=== PATIENT | female | born 1950 | race Caucasian/White ===

== ENCOUNTER 2018-10-06 10:00 | Inpatient (IN) ==
[2018-10-06 10:23] LABS: Basophils % 1.1 % (0.0-0.8); Eosinophils # 0.1 10*3/uL (0.0-0.87); Eosinophils % 2.5 % (0.00-10.9); Hematocrit 30.8 VOL% (35.7-47.0); Hemoglobin 10.5 GM/DL (12.0-16.0); Immature Granulocytes % 0.3 %; Immature Granulocytes Absolute 0.01 #; Lymphocytes # 1.2 10*3/uL (1.4-4.0); Lymphocytes % 33.3 % (21.3-54.2); Mean Corpuscular HGB Conc 34.1 GM/DL (32-36); Monocytes % 10.4 % (1.7-12.7); Neutrophils % 52.4 % (38.7-73.9); Platelet Count 113 T/CUMM (130-400); Red Blood Count 2.99 MC/CUMM (3.8-5.5); White Blood Count 3.6 T/CUMM (4-12)
[2018-10-06 10:39] LABS: Bilirubin,Total 0.4 MG/DL (0.2-1.0); Calcium 8.5 MG/DL (8.5-10.1)
[2018-10-06 11:09] LABS: Apearance,Urine CLEAR (Clear); Bilirubin,Urine Negative (Negative); Blood, Urine Negative (Negative); Glucose,Urine (UA) Negative (Negative); Hyaline Casts,Urine 46 /LPF (0-3); Ketones,Urine Negative (Negative); Mucus,Urine Occasional /LPF (Occasional); Nitrite,Urine Negative (Negative); Protein,Urine Negative; RBC,Urine <1 /HPF (0-4); Squamous Epithelial Cell,Urine Occasional /HPF (0-10); Urine Color Yellow (Yellow); Urine Urobilinogen < 2.0 EU/DL (0.2-1.0); WBC,Urine <1 /HPF (0-6)
[2018-10-06] MEDS ORDERED: ZALEPLON 5 MG CAPSULE PO PRN (11:27)
[2018-10-06] MEDS ORDERED: DEXTROSE 10% 25 GM/250 ML BAG IV PRN ×2 (11:27→11:34)
[2018-10-06] MEDS ORDERED: MAGNESIUM SULF RIDER 2 GM in PREMIX 1 EACH IV PRN (11:27)
[2018-10-06] MEDS ORDERED: MAGNESIUM SULF RIDER 4 GM in PREMIX 1 EACH IV PRN (11:27)
[2018-10-06] MEDS ORDERED: MORPHINE 4 MG/1 ML VIAL IV PRN (11:27)
[2018-10-06] MEDS ORDERED: ONDANSETRON 4 MG/2 ML VIAL IV PRN (11:27)
[2018-10-06] MEDS ORDERED: GLUCAGON 1 MG VIAL IM PRN ×2 (11:27→11:34)
[2018-10-06] MEDS ORDERED: ONDANSETRON 4 MG TABLET PO PRN (11:31)
[2018-10-06] MEDS ORDERED: NITROGLYCERIN SL 0.4 MG TABLET SL PRN (11:31)
[2018-10-06] MEDS: SODIUM CHLORIDE 0.45% 1,000 ML IV SCH (13:55)
[2018-10-06] MEDS: ENOXAPARIN 30 MG/0.3 ML SYRINGE SUBCUT SCH (13:56)
[2018-10-06] MEDS: INSULIN LISPRO 100 UNIT/ML SUBCUT SCH ×2 (16:36→20:50)
[2018-10-06] MEDS: MAGNESIUM CHLORIDE 64 MG TABLET PO SCH (20:50)
[2018-10-06] MEDS: busPIRone 5 MG TABLET PO SCH (20:50)
[2018-10-06] MEDS: CLOPIDOGREL 75 MG TABLET PO SCH (20:50)
[2018-10-06] MEDS: ASPIRIN CHEW 81 MG TABLET PO SCH (20:50)
[2018-10-06] MEDS: SIMVASTATIN 80 MG TABLET PO SCH (20:50)
[2018-10-06] MEDS: FAMOTIDINE 20 MG TABLET PO SCH (20:50)
[2018-10-06] MEDS: RANOLAZINE 500 MG TABLET PO SCH (20:50)
[2018-10-06] MEDS: CARVEDILOL 25 MG TABLET PO SCH (20:50)
[2018-10-06] MEDS: NIACIN 500 MG TABLET PO SCH (20:55)
[2018-10-07 05:41] LABS: Risk Ratio 1.96
[2018-10-07] MEDS: LEVOTHYROXINE 150 MCG TABLET PO SCH (06:21)
[2018-10-07] MEDS: INSULIN LISPRO 100 UNIT/ML SUBCUT SCH ×4 (08:29→20:14)
[2018-10-07] MEDS: RANOLAZINE 500 MG TABLET PO SCH ×2 (08:29→20:18)
[2018-10-07] MEDS: FUROSEMIDE 20 MG TABLET PO SCH (08:29)
[2018-10-07] MEDS: LISINOPRIL/HCTZ 10-12.5 MG TABLET PO SCH (08:30)
[2018-10-07] MEDS: ISOSORBIDE MONONITRATE 60 MG TABLET PO SCH (08:30)
[2018-10-07] MEDS: CARVEDILOL 25 MG TABLET PO SCH ×2 (08:30→20:19)
[2018-10-07] MEDS: PANTOPRAZOLE 40 MG TABLET PO SCH (08:30)
[2018-10-07] MEDS: OMEGA 3 ACID ETHYL ESTERS 1 GM CAPSULE PO SCH (08:30)
[2018-10-07] MEDS: busPIRone 5 MG TABLET PO SCH ×2 (08:30→20:19)
[2018-10-07] MEDS: CALCIUM (CARBONATE)/VITAMIN D 600 MG-400 UNIT TABLET PO SCH (08:30)
[2018-10-07] MEDS: FAMOTIDINE 20 MG TABLET PO SCH ×2 (08:30→20:19)
[2018-10-07] MEDS: MULTIVITAMIN (CENTRUM) TABLET PO SCH (08:30)
[2018-10-07] MEDS: SODIUM CHLORIDE 0.45% 1,000 ML IV SCH ×2 (10:54→15:16)
[2018-10-07] MEDS: ENOXAPARIN 30 MG/0.3 ML SYRINGE SUBCUT SCH (13:02)
[2018-10-07] MEDS: ASPIRIN CHEW 81 MG TABLET PO SCH (20:18)
[2018-10-07] MEDS: MAGNESIUM CHLORIDE 64 MG TABLET PO SCH (20:19)
[2018-10-07] MEDS: SIMVASTATIN 80 MG TABLET PO SCH (20:19)
[2018-10-07] MEDS: NIACIN 500 MG TABLET PO SCH (20:19)
[2018-10-07] MEDS: CLOPIDOGREL 75 MG TABLET PO SCH (20:19)
[2018-10-08] MEDS: SODIUM CHLORIDE 0.45% 1,000 ML IV SCH (03:42)
[2018-10-08] MEDS: LEVOTHYROXINE 150 MCG TABLET PO SCH (06:10)
[2018-10-08 08:58] LABS: Calcium 9.1 MG/DL (8.5-10.1); Osmolality,Calculated 286.5 MOS/KG (273-304)
[2018-10-08] MEDS: CALCIUM (CARBONATE)/VITAMIN D 600 MG-400 UNIT TABLET PO SCH (09:33)
[2018-10-08] MEDS: MULTIVITAMIN (CENTRUM) TABLET PO SCH (09:33)
[2018-10-08] MEDS: ISOSORBIDE MONONITRATE 60 MG TABLET PO SCH (09:33)
[2018-10-08] MEDS: LISINOPRIL/HCTZ 10-12.5 MG TABLET PO SCH (09:33)
[2018-10-08] MEDS: busPIRone 5 MG TABLET PO SCH (09:33)
[2018-10-08] MEDS: FAMOTIDINE 20 MG TABLET PO SCH (09:33)
[2018-10-08] MEDS: FUROSEMIDE 20 MG TABLET PO SCH (09:33)
[2018-10-08] MEDS: RANOLAZINE 500 MG TABLET PO SCH (09:33)
[2018-10-08] MEDS: OMEGA 3 ACID ETHYL ESTERS 1 GM CAPSULE PO SCH (09:33)
[2018-10-08] MEDS: CARVEDILOL 25 MG TABLET PO SCH (09:33)
[2018-10-08] MEDS: PANTOPRAZOLE 40 MG TABLET PO SCH (09:33)
[2018-10-08] MEDS: INSULIN LISPRO 100 UNIT/ML SUBCUT SCH ×3 (09:46→16:44)
[2018-10-08] MEDS ORDERED: ZINC OXIDE PASTE 113 GM TUBE TOP PRN (11:54)
[2018-10-08] MEDS: ENOXAPARIN 30 MG/0.3 ML SYRINGE SUBCUT SCH (12:54)
[2018-10-08 15:36] VITALS: BP 115/55
== END 2018-10-08 18:00 | disposition home health service (06) | DRG 310 ==
LOC: EDBD → EDUNIT# → N.ED 10:00 → N.EDINP 11:27 → N.TELEN 12:33
PROVIDERS: ADMIT Family Medicine; ATTEND Family Medicine

== ENCOUNTER 2019-08-21 10:10 | Inpatient (IN) ==
[2019-08-21] MEDS ORDERED: NALOXONE 0.4 MG/ML VIAL ONE (10:48)
[2019-08-21 10:51] LABS: Eosinophils % 0.4 % (0.00-10.9); Hematocrit 30.3 VOL% (35.7-47.0); Hemoglobin 10.4 GM/DL (12.0-16.0); Immature Granulocytes % 0.4 %; Immature Granulocytes Absolute 0.02 #; Lymphocytes # 0.6 10*3/uL (1.4-4.0); Lymphocytes % 10.8 % (21.3-54.2); Mean Corpuscular HGB Conc 34.3 GM/DL (32-36); Mean Corpuscular Volume 101.3 FL (87-102); Mean Platelet Volume 10.3 FL (9.6-12.0); Monocytes % 5.4 % (1.7-12.7); Platelet Count 113 T/CUMM (130-400); Red Blood Count 2.99 MC/CUMM (3.8-5.5); Red Cell Distribution Width 12.1 % (9.3-17.3); White Blood Count 5.4 T/CUMM (4-12)
[2019-08-21] MEDS ORDERED: NALOXONE 0.4 MG/ML VIAL IV STA (10:52)
[2019-08-21 11:10] LABS: Albumin 2.7 G/DL (3.4-5.0); Bilirubin,Total 0.5 MG/DL (0.2-1.0); Calcium 8.3 MG/DL (8.5-10.1); Osmolality,Calculated 278.8 MOS/KG (273-304); Total Protein 5.8 G/DL (6.4-8.3)
[2019-08-21 11:58] LABS: Amorphous Crystals,Urine Occasional /HPF (Few); Apearance,Urine CLOUDY (Clear); Bilirubin,Urine Negative (Negative); Blood, Urine Moderate mg/dL (Negative); Glucose,Urine (UA) Negative (Negative); Hyaline Casts,Urine 9 /LPF (0-3); Ketones,Urine Negative (Negative); Mucus,Urine Occasional /LPF (Occasional); Nitrite,Urine Negative (Negative); Protein,Urine 30 MG/DL; RBC,Urine 37 /HPF (0-4); Squamous Epithelial Cell,Urine Few /HPF (0-10); Urine Color Amber (Yellow); Urine Specific Gravity 1.021 (1.001-1.035); WBC,Urine 6 /HPF (0-6)
[2019-08-21] MEDS ORDERED: GLUCAGON 1 MG VIAL IM PRN (13:32)
[2019-08-21] MEDS ORDERED: ONDANSETRON 4 MG/2 ML VIAL IV PRN (13:32)
[2019-08-21] MEDS ORDERED: ACETAMINOPHEN 325 MG TABLET PO PRN (13:32)
[2019-08-21] MEDS ORDERED: DEXTROSE 50% 25 GM/50 ML VIAL IV PRN (13:32)
[2019-08-21] MEDS ORDERED: NITROGLYCERIN SL 0.4 MG TABLET SL PRN (13:36)
[2019-08-21] MEDS: SODIUM CHLORIDE 0.9% 1,000 ML IV SCH ×2 (15:40→23:47)
[2019-08-21] MEDS: cefTRIAXone 1,000 MG in SYRINGE 1 EACH IV SCH (17:55)
[2019-08-21] MEDS: INSULIN LISPRO 100 UNIT/ML SUBCUT SCH ×2 (17:59→21:05)
[2019-08-21] MEDS: ASPIRIN CHEW 81 MG TABLET PO SCH (21:00)
[2019-08-21] MEDS: SIMVASTATIN 80 MG TABLET PO SCH (21:01)
[2019-08-21] MEDS: RANOLAZINE 500 MG TABLET PO SCH (21:01)
[2019-08-21] MEDS: MAGNESIUM CHLORIDE 64 MG TABLET PO SCH (21:01)
[2019-08-21] MEDS: DOCUSATE SODIUM 100 MG CAPSULE PO SCH (21:01)
[2019-08-21] MEDS: CLOPIDOGREL 75 MG TABLET PO SCH (21:01)
[2019-08-21] MEDS: busPIRone 5 MG TABLET PO SCH (21:04)
[2019-08-21] MEDS: NIACIN 500 MG TABLET PO SCH (21:06)
[2019-08-22] MEDS: LEVOTHYROXINE 150 MCG TABLET PO SCH (06:16)
[2019-08-22] MEDS: SODIUM CHLORIDE 0.9% 1,000 ML IV SCH ×2 (06:16→15:32)
[2019-08-22 06:52] LABS: Basophils % 0.1 % (0.0-0.8); Eosinophils # 0.1 10*3/uL (0.0-0.87); Hematocrit 35.4 VOL% (35.7-47.0); Hemoglobin 11.6 GM/DL (12.0-16.0); Immature Granulocytes % 0.4 %; Immature Granulocytes Absolute 0.03 #; Lymphocytes # 0.8 10*3/uL (1.4-4.0); Lymphocytes % 9.3 % (21.3-54.2); Mean Corpuscular HGB Conc 32.8 GM/DL (32-36); Mean Corpuscular Volume 103.8 FL (87-102); Mean Platelet Volume 11.2 FL (9.6-12.0); Monocytes % 9.1 % (1.7-12.7); Neutrophils % 80.1 % (38.7-73.9); Platelet Count 138 T/CUMM (130-400); Red Blood Count 3.41 MC/CUMM (3.8-5.5); Red Cell Distribution Width 12.3 % (9.3-17.3)
[2019-08-22 07:21] LABS: Calcium 8.2 MG/DL (8.5-10.1); Osmolality,Calculated 280.5 MOS/KG (273-304)
[2019-08-22] MEDS ORDERED: SODIUM CHLORIDE 0.9% 500 ML IV STA (07:38)
[2019-08-22] MEDS: RANOLAZINE 500 MG TABLET PO SCH (09:31)
[2019-08-22] MEDS: DOCUSATE SODIUM 100 MG CAPSULE PO SCH ×2 (09:32→22:05)
[2019-08-22] MEDS: busPIRone 5 MG TABLET PO SCH ×2 (09:32→21:24)
[2019-08-22] MEDS: PANTOPRAZOLE 40 MG TABLET PO SCH (09:32)
[2019-08-22] MEDS: CALCIUM (CARBONATE)/VITAMIN D 600 MG-400 UNIT TABLET PO SCH (09:32)
[2019-08-22] MEDS: OMEGA 3 ACID ETHYL ESTERS 1 GM CAPSULE PO SCH (09:32)
[2019-08-22] MEDS: MULTIVITAMIN (CENTRUM) TABLET PO SCH (09:32)
[2019-08-22] MEDS: INSULIN LISPRO 100 UNIT/ML SUBCUT SCH ×4 (09:33→22:05)
[2019-08-22] MEDS ORDERED: SODIUM CHLORIDE 0.9% 1,000 ML IV ONE (15:40)
[2019-08-22] MEDS: cefTRIAXone 1,000 MG in SYRINGE 1 EACH IV SCH (18:33)
[2019-08-22] MEDS ORDERED: ALBUTEROL/IPRATROPIUM 3 ML NEB RESP TX PRN (20:11)
[2019-08-22] MEDS: ASPIRIN CHEW 81 MG TABLET PO SCH (21:21)
[2019-08-22] MEDS: CLOPIDOGREL 75 MG TABLET PO SCH (21:21)
[2019-08-22] MEDS: MAGNESIUM CHLORIDE 64 MG TABLET PO SCH (22:06)
[2019-08-22] MEDS: NIACIN 500 MG TABLET PO SCH (22:06)
[2019-08-22] MEDS: SIMVASTATIN 80 MG TABLET PO SCH (22:06)
[2019-08-23] MEDS: RANOLAZINE 500 MG TABLET PO SCH ×2 (00:03→09:29)
[2019-08-23] MEDS: SODIUM CHLORIDE 0.9% 1,000 ML IV SCH ×5 (00:11→19:26)
[2019-08-23] MEDS: LEVOTHYROXINE 150 MCG TABLET PO SCH (05:32)
[2019-08-23 06:53] LABS: Osmolality,Calculated 285.4 MOS/KG (273-304)
[2019-08-23] MEDS: DOCUSATE SODIUM 100 MG CAPSULE PO SCH (09:30)
[2019-08-23] MEDS: MULTIVITAMIN (CENTRUM) TABLET PO SCH (09:30)
[2019-08-23] MEDS: OMEGA 3 ACID ETHYL ESTERS 1 GM CAPSULE PO SCH (09:30)
[2019-08-23] MEDS: PANTOPRAZOLE 40 MG TABLET PO SCH (09:31)
[2019-08-23] MEDS: CALCIUM (CARBONATE)/VITAMIN D 600 MG-400 UNIT TABLET PO SCH (09:31)
[2019-08-23] MEDS: busPIRone 5 MG TABLET PO SCH (09:31)
[2019-08-23] MEDS: INSULIN LISPRO 100 UNIT/ML SUBCUT SCH ×3 (09:32→16:37)
[2019-08-23] MEDS ORDERED: SODIUM CHLORIDE 0.9% 1,000 ML IV STA (10:43)
[2019-08-23] MEDS: MEROPENEM 500 MG in SODIUM CHLORIDE 0.9% 100 ML IV SCH (15:29)
[2019-08-23] MEDS ORDERED: FUROSEMIDE 40 MG/4 ML VIAL IV ONE (16:29)
[2019-08-24] MEDS: SODIUM CHLORIDE 0.9% 1,000 ML IV SCH ×5 (00:38→16:20)
[2019-08-24] MEDS: busPIRone 5 MG TABLET PO SCH ×3 (00:42→22:10)
[2019-08-24] MEDS: DOCUSATE SODIUM 100 MG CAPSULE PO SCH ×3 (00:42→22:11)
[2019-08-24] MEDS: ASPIRIN CHEW 81 MG TABLET PO SCH ×2 (00:42→22:10)
[2019-08-24] MEDS: INSULIN LISPRO 100 UNIT/ML SUBCUT SCH ×4 (00:42→16:50)
[2019-08-24] MEDS: CLOPIDOGREL 75 MG TABLET PO SCH ×2 (00:42→22:11)
[2019-08-24] MEDS: MAGNESIUM CHLORIDE 64 MG TABLET PO SCH ×2 (00:43→22:11)
[2019-08-24] MEDS: RANOLAZINE 500 MG TABLET PO SCH ×3 (00:43→22:11)
[2019-08-24] MEDS: SIMVASTATIN 80 MG TABLET PO SCH ×2 (00:43→22:12)
[2019-08-24] MEDS: NIACIN 500 MG TABLET PO SCH ×2 (00:43→22:12)
[2019-08-24] MEDS: MEROPENEM 500 MG in SODIUM CHLORIDE 0.9% 100 ML IV SCH ×2 (03:15→14:47)
[2019-08-24 06:25] LABS: Basophils % 0.1 % (0.0-0.8); Hematocrit 36.3 VOL% (35.7-47.0); Hemoglobin 11.8 GM/DL (12.0-16.0); Immature Granulocytes % 0.4 %; Immature Granulocytes Absolute 0.04 #; Lymphocytes # 0.5 10*3/uL (1.4-4.0); Lymphocytes % 5.1 % (21.3-54.2); Mean Corpuscular HGB Conc 32.5 GM/DL (32-36); Mean Corpuscular Volume 106.5 FL (87-102); Mean Platelet Volume 11.2 FL (9.6-12.0); Neutrophils % 88.4 % (38.7-73.9); Platelet Count 124 T/CUMM (130-400); Red Blood Count 3.41 MC/CUMM (3.8-5.5); White Blood Count 9.3 T/CUMM (4-12)
[2019-08-24] MEDS: LEVOTHYROXINE 150 MCG TABLET PO SCH (06:30)
[2019-08-24 07:04] LABS: Calcium 7.9 MG/DL (8.5-10.1); Osmolality,Calculated 292.4 MOS/KG (273-304)
[2019-08-24] MEDS ORDERED: ALBUMIN 25% 25 GM in PREMIX 1 EACH IV ONE (07:30)
[2019-08-24] MEDS: CALCIUM (CARBONATE)/VITAMIN D 600 MG-400 UNIT TABLET PO SCH (09:51)
[2019-08-24] MEDS: PANTOPRAZOLE 40 MG TABLET PO SCH (09:52)
[2019-08-24] MEDS: MULTIVITAMIN (CENTRUM) TABLET PO SCH (09:52)
[2019-08-24] MEDS: OMEGA 3 ACID ETHYL ESTERS 1 GM CAPSULE PO SCH (09:52)
[2019-08-24] MEDS: MORPHINE 4 MG/1 ML VIAL IV PRN ×3 (09:59→21:58)
[2019-08-25] MEDS: INSULIN LISPRO 100 UNIT/ML SUBCUT SCH ×4 (00:26→17:24)
[2019-08-25] MEDS: SODIUM CHLORIDE 0.9% 1,000 ML IV SCH ×3 (02:50→18:47)
[2019-08-25] MEDS: MEROPENEM 500 MG in SODIUM CHLORIDE 0.9% 100 ML IV SCH ×2 (02:51→16:27)
[2019-08-25] MEDS: MORPHINE 4 MG/1 ML VIAL IV PRN ×4 (04:25→18:40)
[2019-08-25 06:34] LABS: Basophils % 0.1 % (0.0-0.8); Eosinophils % 0.3 % (0.00-10.9); Hematocrit 34.9 VOL% (35.7-47.0); Hemoglobin 10.9 GM/DL (12.0-16.0); Immature Granulocytes % 0.7 %; Immature Granulocytes Absolute 0.08 #; Lymphocytes # 0.5 10*3/uL (1.4-4.0); Lymphocytes % 4.6 % (21.3-54.2); Mean Corpuscular HGB Conc 31.2 GM/DL (32-36); Mean Corpuscular Volume 109.1 FL (87-102); Mean Platelet Volume 11.7 FL (9.6-12.0); Monocytes % 6.6 % (1.7-12.7); Neutrophils % 87.7 % (38.7-73.9); Platelet Count 125 T/CUMM (130-400); Red Cell Distribution Width 12.9 % (9.3-17.3); White Blood Count 11.7 T/CUMM (4-12)
[2019-08-25 06:39] LABS: Osmolality,Calculated 298.4 MOS/KG (273-304)
[2019-08-25] MEDS: LEVOTHYROXINE 150 MCG TABLET PO SCH (06:39)
[2019-08-25 08:41] LABS: Atypical Lymphocytes Few; Band Neutrophils 1 % (0-10); Lymphocytes 5 % (20-55); Polychromasia Slight; Segmented Neutrophils 90 % (50-85); Total Cells Counted 100
[2019-08-25 08:58] LABS: Platelet Estimate Adequate
[2019-08-25] MEDS ORDERED: SODIUM POLYSTYRENE SULFATE 15 GM/60 ML BOTTLE PO ONE (09:14)
[2019-08-25] MEDS ORDERED: LORazepam 2 MG/1 ML VIAL IV PRN (09:22)
[2019-08-25] MEDS: busPIRone 5 MG TABLET PO SCH (09:58)
[2019-08-25] MEDS: RANOLAZINE 500 MG TABLET PO SCH (09:59)
[2019-08-25] MEDS: OMEGA 3 ACID ETHYL ESTERS 1 GM CAPSULE PO SCH (09:59)
[2019-08-25] MEDS: PANTOPRAZOLE 40 MG TABLET PO SCH (09:59)
[2019-08-25] MEDS: DOCUSATE SODIUM 100 MG CAPSULE PO SCH (09:59)
[2019-08-25] MEDS: CALCIUM (CARBONATE)/VITAMIN D 600 MG-400 UNIT TABLET PO SCH (09:59)
[2019-08-25] MEDS: MULTIVITAMIN (CENTRUM) TABLET PO SCH (09:59)
[2019-08-25 21:10] VITALS: BP 69/27
== END 2019-08-25 19:55 | disposition expired ==
LOC: EDUNIT# → EDBD → N.ED 10:10 → N.EDINP 10:10 → N.TELEN 13:59
PROVIDERS: ADMIT Family Medicine; ATTEND Family Medicine